=== PATIENT | female | born 1975 ===

== ENCOUNTER 2024-12-23 10:45 | Inpatient (IN) | payer OTHER ==
[~2024-12-23] VITALS: Ht 157.5 cm; Wt 84.8 kg
[~2024-12-23 10:45] MED LIST: PEPCID40 MG PO; ZESTRIL40 M1 PO
[2025-01-13] MEDS ORDERED: PROBIOTIC1 EAC4 PO (13:50)
[2025-01-20] MEDS ORDERED: METRONIDAZOLE/SODIUM CHLORIDE 500 MG/100 ML PIGGYBACK IV ONE (08:03)
[2025-01-20] MEDS ORDERED: CEFTRIAXONE SODIUM 2,000 MG VIAL ONE (08:03)
[2025-01-20] MEDS ORDERED: BUPIVACAINE HCL/Mpf 0.5% 10ML VIAL ONE (08:42)
[2025-01-20] MEDS ORDERED: LIDOCAINE HCL 1%/EPINEPHRINE 20ML VIAL IJ ONE (08:42)
[2025-01-20] MEDS ORDERED: SUGAMMADEX SODIUM 200 MG/2 ML VIAL IV ONE (11:00)
[2025-01-20] MEDS ORDERED: OxyCODONE HCL 5 MG TABLET (ROXICODONE) PO PRN (11:30)
[2025-01-20] MEDS ORDERED: MORPHINE SULFATE 4 MG/ML CARTRIDGE IV PRN (11:30)
[2025-01-20] MEDS ORDERED: ONDANSETRON HCL 2 MG/ML VIAL IV PRN (11:30)
[2025-01-20] MEDS ORDERED: RINGERS SOLUTION,LACTATED 1,000 ML IV SCH (11:30)
[2025-01-20] MEDS ORDERED: DEXTROSE 50 % IN WATER 0.5 G/ML VIAL IV PRN (11:30)
[2025-01-20] MEDS ORDERED: MORPHINE SULFATE 4 MG/ML VIAL IV ONE ×2 (11:50→12:50)
[2025-01-20] MEDS ORDERED: ENALAPRILAT DIHYDRATE 1.25 MG/ML VIAL IV PRN (14:00)
[2025-01-20] MEDS ORDERED: ACETAMINOPHEN 500 MG GEL..CAP PO SCH (14:00)
[2025-01-20 14:27] LABS: BASO % 0.2 % (0.1-1.2); EOS # 0.03 (0.04-0.54); EOS % 0.2 % (0.7-7.0); LYMPH # 1.20 (1.18-3.74); LYMPH % 6.8 % (19.3-53.1); MEAN PLATELET VOLUME 13.10 fl (9.4-12.4); MONO # 0.74 (0.24-0.82); MONO % 4.2 % (4.7-12.5); NEUT # 15.64 (1.56-6.13); NEUT % 88.3 % (34.0-71.1); RED CELL DISTRIBUTION WIDTH 16.7 % (11.6-14.4)
[2025-01-20] MEDS ORDERED: METOCLOPRAMIDE HCL 5 MG/ML VIAL IV SCH (17:00)
[2025-01-20] MEDS ORDERED: GABAPENTIN 300 MG CAPSULE PO SCH (17:00)
[2025-01-20] MEDS ORDERED: SIMETHICONE 125 MG CAPSULE PO SCH (17:00)
[2025-01-20] MEDS ORDERED: POLYETHYLENE GLYCOL 3350 17 GM BLIST.PACK PO SCH (17:00)
[2025-01-20] MEDS ORDERED: HYOSCYAMINE SULFATE 0.125 MG TAB.SUBL SL SCH (17:00)
[2025-01-20] MEDS ORDERED: CELECOXIB 200 MG CAPSULE PO SCH (17:00)
[2025-01-20 17:03] VITALS: BP 149/90; O2SAT 97
[2025-01-20] MEDS ORDERED: FAMOTIDINE/PF 20 MG/2 ML VIAL IV PUSH SCH (21:00)
[2025-01-21 01:30] VITALS: BP 130/82; O2SAT 97
[2025-01-21 06:57] LABS: BASO % 0.3 % (0.1-1.2); EOS # 0.10 (0.04-0.54); EOS % 1.1 % (0.7-7.0); LYMPH # 1.67 (1.18-3.74); LYMPH % 18.8 % (19.3-53.1); MEAN PLATELET VOLUME 12.60 fl (9.4-12.4); MONO # 0.63 (0.24-0.82); MONO % 7.1 % (4.7-12.5); NEUT # 6.41 (1.56-6.13); NEUT % 72.4 % (34.0-71.1); RED CELL DISTRIBUTION WIDTH 16.5 % (11.6-14.4)
[2025-01-21 07:43] LABS: BUN CREA RATIO 12.0 (7.0-25.0); CREATININE SERUM 0.68 mg/dL (0.55-1.02); GFR 91.96; GLUCOSE FASTING 86.0 mg/dL (65-100); OSMOLALITY SERUM 279.0 MOSM/KG (275-295)
[2025-01-21] MEDS ORDERED: LACTOBACILLUS ACIDOPHILUS 1 CAP CAP PO SCH (09:00)
[2025-01-21] MEDS ORDERED: LACTULOSE 20 G/30 ML BLIST.PACK PO SCH (09:00)
[2025-01-21] MEDS ORDERED: LISINOPRIL 40 MG TABLET PO SCH ×2 (09:00→21:00)
[2025-01-21 16:00] VITALS: BP 112/68; O2SAT 95
[2025-01-21] MEDS ORDERED: ENOXAPARIN SODIUM 40 MG/0.4 ML SYRINGE SUBCUTANEO SCH (17:00)
[2025-01-22 01:08] VITALS: BP 104/65; O2SAT 97
[2025-01-22 08:00] VITALS: BP 128/83; O2SAT 99
[2025-01-22 08:05] LABS: BASO % 0.5 % (0.1-1.2); EOS # 0.16 (0.04-0.54); EOS % 2.7 % (0.7-7.0); LYMPH # 1.51 (1.18-3.74); LYMPH % 25.9 % (19.3-53.1); MEAN PLATELET VOLUME 13.30 fl (9.4-12.4); MONO # 0.43 (0.24-0.82); MONO % 7.4 % (4.7-12.5); NEUT # 3.69 (1.56-6.13); NEUT % 63.2 % (34.0-71.1); RED CELL DISTRIBUTION WIDTH 16.9 % (11.6-14.4)
[2025-01-22 08:08] LABS: BUN CREA RATIO 15.0 (7.0-25.0); CREATININE SERUM 0.65 mg/dL (0.55-1.02); GFR 96.88; GLUCOSE FASTING 84.0 mg/dL (65-100); OSMOLALITY SERUM 285.0 MOSM/KG (275-295)
[2025-01-22] MEDS ORDERED: ENOXAPARIN SODIUM 40 MG/0.4 ML SYRINGE SUBCUTANEO SCH (09:00)
== END 2025-01-22 14:36 | disposition home or self-care (01) | DRG 330 ==
LOC: SURG 01-20 07:54 → O/R 01-20 07:54 → SURH 01-20 12:15 → SURG 01-20 13:28 → SURH 01-20 16:30 → SURG 01-22 14:36
PROVIDERS: Internal Medicine Geriatric Medicine; ADMIT Colon & Rectal Surgery; ATTEND Colon & Rectal Surgery
PROC: 0DBP4ZZ Excision of Rectum, Percutaneous Endoscopic Approach (ICD-10-PCS; 2025-01-20)
PROC: 0DTN4ZZ Resection of Sigmoid Colon, Percutaneous Endoscopic Approach (ICD-10-PCS; principal; 2025-01-20 16:30)
DX: K57.32 Diverticulitis of large intestine without perforation or abscess without bleeding (principal); K92.1 Melena